=== PATIENT | female | born 1955 | race Caucasian/White ===

== ENCOUNTER → 2017-05-14 | Outpatient (CLI) | payer OTHER | END | disposition home or self-care (01) | LOC: CFH 12:37 | PROVIDERS: ATTEND Nurse Practitioner | DX: J47.9 Bronchiectasis, uncomplicated (principal); J43.2 Centrilobular emphysema; J84.10 Pulmonary fibrosis, unspecified; R91.1 Solitary pulmonary nodule | CPT/HCPCS: 71250 ==

== ENCOUNTER → 2018-01-05 | Outpatient (CLI) | payer OTHER | END | disposition home or self-care (01) | LOC: CFH 15:14 | PROVIDERS: ATTEND Registered Nurse | DX: R91.1 Solitary pulmonary nodule (principal); J47.9 Bronchiectasis, uncomplicated; D73.4 Cyst of spleen; Z87.891 Personal history of nicotine dependence | CPT/HCPCS: 71250 ==

== ENCOUNTER → 2018-03-24 | Outpatient (CLI) | payer OTHER | END | disposition home or self-care (01) | LOC: RAD 10:52 | PROVIDERS: ATTEND Internal Medicine Critical Care Medicine | DX: J47.9 Bronchiectasis, uncomplicated (principal); T17.890A Other foreign object in other parts of respiratory tract causing asphyxiation, initial encounter; J15.1 Pneumonia due to Pseudomonas; X58.XXXA Exposure to other specified factors, initial encounter; Y93.89 Activity, other specified; Y92.89 Other specified places as the place of occurrence of the external cause; Y99.8 Other external cause status | CPT/HCPCS: 71250 ==

== ENCOUNTER 2019-06-28 16:45 | Outpatient (CLI) | payer OTHER | END 2019-06-28 23:59 | disposition home or self-care (01) | LOC: RAD 16:45 | PROVIDERS: ATTEND Registered Nurse | DX: J44.9 Chronic obstructive pulmonary disease, unspecified (principal); J84.10 Pulmonary fibrosis, unspecified; J98.4 Other disorders of lung | CPT/HCPCS: 71046 ==

== ENCOUNTER → 2020-10-18 | Outpatient (CLI) | payer OTHER | END | disposition home or self-care (01) | LOC: RAD 10:52 | PROVIDERS: ATTEND Internal Medicine | DX: T17.890A Other foreign object in other parts of respiratory tract causing asphyxiation, initial encounter (principal); M43.8X4 Other specified deforming dorsopathies, thoracic region; D73.89 Other diseases of spleen; I25.10 Atherosclerotic heart disease of native coronary artery without angina pectoris; J47.9 Bronchiectasis, uncomplicated; R91.1 Solitary pulmonary nodule; J84.10 Pulmonary fibrosis, unspecified; X58.XXXA Exposure to other specified factors, initial encounter; Y93.89 Activity, other specified; Y92.89 Other specified places as the place of occurrence of the external cause; Y99.8 Other external cause status | CPT/HCPCS: 71250 ==